=== PATIENT | female | born 1990 | race Caucasian/White ===

== ENCOUNTER 2016-09-11 02:33 | Emergency (ER) | payer SELFPAY ==
[~2016-09-11] VITALS: Ht 167.6 cm; Wt 54.4 kg
[2016-09-11 02:41] VITALS: BP 100/58
[2016-09-11 04:37] VITALS: BP 90/59
[2016-09-11 06:54] VITALS: BP 99/68
--- NOTE | 2016-09-11 21:16 | Emergency Room Report ---
History of Present Illness General Chief Complaint: Alcohol Intoxication Source: EMS Present Illness HPI 25-year-old female presents ED for evaluation. Per EMS patient was found in back of [facility] tonight intoxicated. [employer] called 911. Patient was unable to walk with steady gait. Patient was brought here. Patient admits that I call use tonight. Denies any drug use. Patient states she feels okay just wants to sleep. Denies any abdominal pain nausea or vomiting. No other aggravating relieving factors. Denies any other symptoms had symptoms Allergies: Coded Allergies: No Known Allergies (Unverified , 09/11/16) Patient History Past Medical History: none Past Surgical History: none Pertinent Family History: none Social History: Denies: alcohol use, drug use, smoking Now: No Immunizations: UTD Reviewed Nursing Documentation: PMH: Agreed, PSxH: Agreed Nursing Documentation-PMH Past Medical History: No Stated History Review of Systems All Other Systems: negative except mentioned in HPI Physical Exam Vital Signs Date Time Temp Pulse Resp B/P Pulse Ox O2 Delivery O2 Flow Rate FiO2 09/11/16 02:30 85 16 114/74 99 Room Air 09/11/16 02:41 98.9 Sp02 EP Interpretation: reviewed, normal General Appearance: no apparent distress, non-toxic, other - intoxicated Head: normocephalic Eyes: bilateral eye PERRL, bilateral eye normal inspection ENT: normal ENT inspection Neck: normal inspection Respiratory: chest non-tender, lungs clear, normal breath sounds, speaking full sentences Cardiovascular #1: regular rate, rhythm, no edema Gastrointestinal: normal bowel sounds, non tender, soft, non-distended, no guarding, no rebound Rectal: deferred Genitourinary: no CVA tenderness Musculoskeletal: normal inspection Neurologic: other - intoxicated Psychiatric: other - intoxicated Skin: normal inspection Lymphatic: normal inspection Medical Decision Making Diagnostic Impression: Primary Impression: Acute alcoholic intoxication Qualified Codes: F10.929 - Alcohol use, unspecified with intoxication, unspecified ER Course Hospital Course 25-year-old female presents to ED status post EtOH intoxication. Clinical course Patient placed on stretcher. Given that patient is able to provide an adequate history, I see no need to check blood work or place an IV. Patient allowed to sleep. My assessment shows no evidence of SI/HI requiring psychiatric evaluation. Patient allowed to rest in now awake alert oriented x3. ambulating without difficulty. Family is at bedside and can take patient home. Diagnosis - ETOH intoxication stable and discharged to home. Followup with PMD. Return to ED if symptoms recur or worsen Last Vital Signs Date Time Temp Pulse Resp B/P Pulse Ox O2 Delivery O2 Flow Rate FiO2 09/11/16 06:54 98.9 107 15 99/68 100 Room Air Status: improved Disposition: HOME, SELF-CARE Condition: Stable Referrals: NOT CHOSEN IPA/,REFERRING (PCP) Patient Instructions: Alcohol Intoxication MOISES GAUTHIER M.D. Sep 11, 2016 21:15
== END 2016-09-11 07:02 | disposition home or self-care (01) ==
LOC: EDBD 02:33 → EMR 02:47
DX: F10.929 Alcohol use, unspecified with intoxication, unspecified (principal)
CPT/HCPCS: 99284